=== PATIENT | female | born 1965 | race Caucasian/White ===

== ENCOUNTER 2017-01-03 15:23 | Emergency (ER) | payer BC ==
[~2017-01-03] VITALS: Ht 160 cm; Wt 60.0 kg
[2017-01-03] MEDS ORDERED: AUGMENTIN875 MG PO (16:47)
[2017-01-03 17:28] VITALS: BP 114/86
== END 2017-01-03 17:30 | disposition home or self-care (01) ==
LOC: EME 15:23
PROC: 3E0234Z Introduction of Serum, Toxoid and Vaccine into Muscle, Percutaneous Approach (ICD-10-PCS; principal; 2017-01-03)
DX: S81.851A Open bite, right lower leg, initial encounter (principal); S80.812A Abrasion, left lower leg, initial encounter; W64.XXXA Exposure to other animate mechanical forces, initial encounter; Y92.096 Garden or yard of other non-institutional residence as the place of occurrence of the external cause; Z23 Encounter for immunization; F17.200 Nicotine dependence, unspecified, uncomplicated
CPT/HCPCS: 99281; 99284

== ENCOUNTER 2017-10-23 12:51 | Emergency (ER) | payer BC ==
[~2017-10-23] VITALS: Ht 160 cm; Wt 62.4 kg
[~2017-10-23 12:51] MED LIST: AUGMENTIN875 MG PO
[2017-10-23 14:01] LABS: HEMATOCRIT 42.6 % (36.0-46.0); HEMOGLOBIN 14.3 G/DL (11.9-15.5); MCHC 33.6 G/DL (30.0-36.0); MCV 95.3 FL (83-99); PLATELET COUNT 224 K/uL (156-360); RBC DIS.WIDTH-CV 12.8 % (11.8-14.6); RBC DIS.WIDTH-SD 44.9 % (39-53); RED BLOOD COUNT 4.47 M/uL (3.80-5.20); WHITE BLOOD COUNT 10.3 K/uL (4.1-10.2)
[2017-10-23 14:08] LABS: CHLORIDE 109 mEq/L (99-109); POTASSIUM 3.9 mEq/L (3.7-5.4); SODIUM 140 mEq/L (136-147)
[2017-10-23 14:10] LABS: GLUCOSE 105 mg/dL (70-99)
[2017-10-23 14:13] LABS: CREATININE 0.8 mg/dL (0.6-1.3); GFR ESTIMATE (CALCULATED) > 59 mL/min/
[2017-10-23 14:14] LABS: UREA NITROGEN (BUN) 15 mg/dL (9-23)
[2017-10-23 14:23] LABS: QUANTITATIVE HCG < 4.0 MIU/ML
[2017-10-23 14:42] LABS: APPEARANCE CLEAR ((CLEAR)); BILIRUBIN NEGATIVE; BLOOD NEGATIVE; COLOR STRAW ((YELLOW)); GLUCOSE (STRIP) NEGATIVE; KETONES NEGATIVE; LEUKOCYTES NEGATIVE; NITRITE NEGATIVE; PROTEIN (STRIP) NEGATIVE; SPECIFIC GRAVITY 1.005 (1.000-1.030); UCUL ADDED? NO; UROBILINOGEN 0.2 MG/DL (0.2-1.0)
[2017-10-23 15:44] VITALS: BP 134/67
== END 2017-10-23 15:45 | disposition home or self-care (01) ==
LOC: EME 12:51
PROVIDERS: Nurse Practitioner Family
DX: R42 Dizziness and giddiness (principal); R51 Headache; F17.200 Nicotine dependence, unspecified, uncomplicated
CPT/HCPCS: 70450; 80048; 81003; 84702; 85027; 99281; 99284